=== PATIENT | male | born 1990 | race Caucasian/White ===

== ENCOUNTER 2020-10-15 16:26 | Emergency (ER) | payer OTHER ==
[~2020-10-15] VITALS: Ht 177.8 cm; Wt 81.7 kg
== END 2020-10-15 16:38 | disposition left against medical advice (07) ==
LOC: M.ERS 16:26
DX: T40.601A Poisoning by unspecified narcotics, accidental (unintentional), initial encounter (principal); R40.20 Unspecified coma; Y92.89 Other specified places as the place of occurrence of the external cause